=== PATIENT | female | born 1985 | race Two or more races ===

== ENCOUNTER 2020-06-27 21:26 | Emergency (ER) | payer SELFPAY ==
[~2020-06-27] VITALS: Ht 162.6 cm; Wt 59.0 kg
--- NOTE | 2020-06-27 21:39 | Emergency Room Report ---
History of Present Illness General Chief Complaint: Chest Pain Source: Patient (Anaya Carbajal DO) Present Illness HPI This patient is brought in by EMS from the street. The patient is a very poor historian. She appears homeless but she refuses to speak to me. She would only speak to me after I threatened to have her removed from the emergency department. She complained of some chest pain earlier in the day. EMS report that her blood sugar was also elevated. The patient does have diabetes. She states that she did take her morning dose of metformin but did not take her evening dose. She does not know the dose of metformin that she takes. Her partner is also in the emergency department with COVID-19. (Anaya Carbajal DO) Allergies: Coded Allergies: No Known Allergies (Unverified , 06/27/20) COVID-19 Screening Contact w/high risk pt: No Experienced COVID-19 symptoms?: No COVID-19 Testing performed UNDERWRITING ASSISTANT: No (Anaya Carbajal DO) Patient History Past Medical History: see triage record, DM, seizures Social History: Reports: smoking, alcohol use, drug use Last Menstrual Period: UNK Reviewed Nursing Documentation: PMH: Agreed; PSxH: Agreed (Anaya Carbajal DO) Nursing Documentation-PMH Hx Diabetes: Yes Hx Seizures: Yes (Anaya Carbajal DO) Review of Systems All Other Systems: negative except mentioned in HPI (Anaya Carbajal DO) Physical Exam Vital Signs Date Time Temp Pulse Resp B/P (MAP) Pulse Ox O2 Delivery O2 Flow Rate FiO2 06/27/20 21:25 97.0 120 20 106/70 (82) 99 Room Air Sp02 EP Interpretation: reviewed, normal General Appearance: no apparent distress, alert, GCS 15, non-toxic Head: normocephalic, atraumatic Eyes: bilateral eye normal inspection, bilateral eye PERRL ENT: hearing grossly normal, normal pharynx, no angioedema, normal voice Neck: full range of motion, supple/symm/no masses Respiratory: chest non-tender, lungs clear, normal breath sounds, no respiratory distress, no retraction, no accessory muscle use, speaking full sentences Cardiovascular #1: no edema, tachycardia Gastrointestinal: normal bowel sounds, non tender, soft, non-distended, no guarding, no rebound Rectal: deferred Musculoskeletal: back normal, normal range of motion, gait/station normal, non- tender Neurologic: alert, motor strength/tone normal, oriented x3, sensory intact, responsive, speech normal Psychiatric: judgement/insight normal, memory normal, mood/affect normal, no suicidal/homicidal ideation Skin: no rash, normal color (Amber Carbajala M. ) Medical Decision Making Diagnostic Impression: Primary Impression: Hyperglycemia Additional Impression: Dehydration Laboratory Tests Test 06/27/20 21:45 White Blood Count 4.4 K/UL (4.8-10.8) L Red Blood Count 5.60 M/UL (4.20-5.40) H Hemoglobin 14.3 G/DL (12.0-16.0) Hematocrit 43.3 % (37.0-47.0) Mean Corpuscular Volume 77 FL (80-99) L Mean Corpuscular Hemoglobin 25.5 PG (27.0-31.0) L Mean Corpuscular Hemoglobin Concent 33.0 G/DL (32.0-36.0) Red Cell Distribution Width 11.5 % (11.6-14.8) L Platelet Count 367 K/UL (150-450) Mean Platelet Volume 7.9 FL (6.5-10.1) Neutrophils (%) (Auto) 26.8 % (45.0-75.0) L Lymphocytes (%) (Auto) 54.5 % (20.0-45.0) H Monocytes (%) (Auto) 11.6 % (1.0-10.0) H Eosinophils (%) (Auto) 3.8 % (0.0-3.0) H Basophils (%) (Auto) 3.3 % (0.0-2.0) H Prothrombin Time 10.0 SEC (9.30-11.50) Prothrombin Time INR 0.9 (0.9-1.1) Activated Partial Thromboplast Time 26 SEC (23-33) D-Dimer 0.37 mg/L FEU (0.00-0.49) Sodium Level 134 MMOL/L (136-145) L Potassium Level 4.4 MMOL/L (3.5-5.1) Chloride Level 98 MMOL/L (98-107) Carbon Dioxide Level 25 MMOL/L (21-32) Anion Gap 11 mmol/L (5-15) Blood Urea Nitrogen 9 mg/dL (7-18) Creatinine 0.8 MG/DL (0.55-1.30) Estimated Glomerular Filtration Rate > 60 mL/min (>60) Glucose Level 420 MG/DL (74-106) H Lactic Acid Level 3.90 mmol/L (0.4-2.0) H Calcium Level 9.1 MG/DL (8.5-10.1) Magnesium Level 2.0 MG/DL (1.8-2.4) Ferritin 92 NG/ML (8-388) Total Bilirubin 0.4 MG/DL (0.2-1.0) Aspartate Amino Transferase (AST) 13 U/L (15-37) L Alanine Aminotransferase (ALT) 20 U/L (12-78) Alkaline Phosphatase 103 U/L (46-116) Lactate Dehydrogenase 137 U/L (81-234) Total Creatine Kinase 27 U/L (26-308) Creatine Kinase MB 0.5 NG/ML (0.0-3.6) Creatine Kinase MB Relative Index 1.8 Troponin I 0.000 ng/mL (0.000-0.056) C-Reactive Protein, Quantitative 0.8 mg/dL (0.00-0.90) Pro-B-Type Natriuretic Peptide 6 pg/mL (0-125) Total Protein 7.7 G/DL (6.4-8.2) Albumin 3.7 G/DL (3.4-5.0) Globulin 4.0 g/dL Albumin/Globulin Ratio 0.9 (1.0-2.7) L Lipase 260 U/L (73-393) Acetone Level Positive-small (NEGATIVE) (Anaya Carbajal. ) ER Course Laboratory Tests Test 06/27/20 21:45 06/27/20 23:01 06/28/20 00:00 06/28/20 00:45 White Blood Count 4.4 K/UL (4.8-10.8) L Red Blood Count 5.60 M/UL (4.20-5.40) H Hemoglobin 14.3 G/DL (12.0-16.0) Hematocrit 43.3 % (37.0-47.0) Mean Corpuscular Volume 77 FL (80-99) L Mean Corpuscular Hemoglobin 25.5 PG (27.0-31.0) L Mean Corpuscular Hemoglobin Concent 33.0 G/DL (32.0-36.0) Red Cell Distribution Width 11.5 % (11.6-14.8) L Platelet Count 367 K/UL (150-450) Mean Platelet Volume 7.9 FL (6.5-10.1) Neutrophils (%) (Auto) 26.8 % (45.0-75.0) L Lymphocytes (%) (Auto) 54.5 % (20.0-45.0) H Monocytes (%) (Auto) 11.6 % (1.0-10.0) H Eosinophils (%) (Auto) 3.8 % (0.0-3.0) H Basophils (%) (Auto) 3.3 % (0.0-2.0) H Prothrombin Time 10.0 SEC (9.30-11.50) Prothrombin Time INR 0.9 (0.9-1.1) Activated Partial Thromboplast Time 26 SEC (23-33) D-Dimer 0.37 mg/L FEU (0.00-0.49) Sodium Level 134 MMOL/L (136-145) L Potassium Level 4.4 MMOL/L (3.5-5.1) Chloride Level 98 MMOL/L (98-107) Carbon Dioxide Level 25 MMOL/L (21-32) Anion Gap 11 mmol/L (5-15) Blood Urea Nitrogen 9 mg/dL (7-18) Creatinine 0.8 MG/DL (0.55-1.30) Estimated Glomerular Filtration Rate > 60 mL/min (>60) Glucose Level 420 MG/DL (74-106) H Lactic Acid Level 3.90 mmol/L (0.4-2.0) H 2.70 mmol/L (0.4-2.0) H 2.10 mmol/L (0.66-2.22) Calcium Level 9.1 MG/DL (8.5-10.1) Magnesium Level 2.0 MG/DL (1.8-2.4) Ferritin 92 NG/ML (8-388) Total Bilirubin 0.4 MG/DL (0.2-1.0) Aspartate Amino Transferase (AST) 13 U/L (15-37) L Alanine Aminotransferase (ALT) 20 U/L (12-78) Alkaline Phosphatase 103 U/L (46-116) Lactate Dehydrogenase 137 U/L (81-234) Total Creatine Kinase 27 U/L (26-308) Creatine Kinase MB 0.5 NG/ML (0.0-3.6) Creatine Kinase MB Relative Index 1.8 Troponin I 0.000 ng/mL (0.000-0.056) C-Reactive Protein, Quantitative 0.8 mg/dL (0.00-0.90) Pro-B-Type Natriuretic Peptide 6 pg/mL (0-125) Total Protein 7.7 G/DL (6.4-8.2) Albumin 3.7 G/DL (3.4-5.0) Globulin 4.0 g/dL Albumin/Globulin Ratio 0.9 (1.0-2.7) L Lipase 260 U/L (73-393) Acetone Level Positive-small (NEGATIVE) Serum Alcohol < 3 mg/dL Patient was signed out to me by the previous physician. She remained hemodynamically stable and neurovascular intact and in no acute distress throughout the rest of her stay in the emergency department. Patient was given 3 L of IV normal saline. At the completion of the fluid resuscitation repeat lactate and blood glucose were much improved. Lactic acidosis had resolved and patient's repeat blood glucose was 104. Patient was told that she needs to be compliant with her medications and she expressed understanding. She will follow-up with her primary care provider. Discharged in stable condition. (Bhaskar Damico M.D.) EKG Diagnostic Results Rate: tachycardiac Rhythm: other - S.tachycardia ST Segments: no acute changes Other Impression Q-waves in V1, V2 ([facility]) Rhythm Strip Diag. Results EP Interpretation: yes Rate: 110's Rhythm: no PVC's, no ectopy, other - S.tachycardia ([facility]) Last Vital Signs Date Time Temp Pulse Resp B/P (MAP) Pulse Ox O2 Delivery O2 Flow Rate FiO2 06/27/20 21:25 97.0 120 20 106/70 (82) 99 Room Air ([facility]) [facility] Jun 27, 2020 21:39 Bhaskar Damico M.D. Jun 28, 2020 04:17
[2020-06-27 21:52] LABS: BASOPHILS % (AUTO) 3.3 % (0.0-2.0); EOSINOPHILS % (AUTO) 3.8 % (0.0-3.0); HEMATOCRIT 43.3 % (37.0-47.0); HEMOGLOBIN 14.3 G/DL (12.0-16.0); LYMPHOCYTES % (AUTO) 54.5 % (20.0-45.0); MEAN CORPUSCULAR VOLUME 77 FL (80-99); MONOCYTES % (AUTO) 11.6 % (1.0-10.0); NEUTROPHILS % (AUTO) 26.8 % (45.0-75.0); PLATELET COUNT 367 K/UL (150-450); RED CELL DISTRIBUTION WIDTH 11.5 % (11.6-14.8); WHITE BLOOD COUNT 4.4 K/UL (4.8-10.8)
[2020-06-27 22:00] VITALS: BP 112/70
[2020-06-27 22:06] LABS: ANION GAP 11 mmol/L (5-15); BLOOD UREA NITROGEN 9 mg/dL (7-18); CALCIUM 9.1 MG/DL (8.5-10.1); CARBON DIOXIDE 25 MMOL/L (21-32); CHLORIDE 98 MMOL/L (98-107); CREATININE 0.8 MG/DL (0.55-1.30); POTASSIUM 4.4 MMOL/L (3.5-5.1); SODIUM 134 MMOL/L (136-145)
[2020-06-27 22:09] LABS: INR 0.9 (0.9-1.1)
[2020-06-27 22:22] LABS: ALANINE AMINOTRANSFERASE 20 U/L (12-78); ALBUMIN 3.7 G/DL (3.4-5.0); ALBUMIN/GLOBULIN RATIO 0.9 (1.0-2.7); ALKALINE PHOSPHATASE 103 U/L (46-116); ASPARTATE AMINO TRANSFERASE 13 U/L (15-37); BILIRUBIN,TOTAL 0.4 MG/DL (0.2-1.0); CKMB 0.5 NG/ML (0.0-3.6); CREATINE KINASE 27 U/L (26-308); FERRITIN 92 NG/ML (8-388); LACTATE DEHYDROGENASE 137 U/L (81-234)
[2020-06-27] MEDS ORDERED: metFORMIN 500mg tab ORAL ONE (22:45)
--- NOTE | 2020-06-27 23:30 | Diagnostic Imaging Report ---
INDICATION: Chest pain. COMPARISON: Unavailable. FINDINGS: Single frontal view demonstrates a normal cardiomediastinal silhouette. No pleural effusions or clinically significant pneumothorax. Airspace opacity identified in the left lower lobe which may represent consolidation /pneumonia. The visualized osseous structures are within normal limits. IMPRESSION: Airspace opacity identified in the left lower lobe which may represent consolidation /pneumonia. Correlate.
[2020-06-28 00:30] VITALS: BP 121/73
[2020-06-28 01:30] VITALS: BP 115/73
== END 2020-06-28 01:30 | disposition home or self-care (01) ==
LOC: EDBD 21:26 → EMR 21:49
DX: E11.65 Type 2 diabetes mellitus with hyperglycemia (principal); G40.909 Epilepsy, unspecified, not intractable, without status epilepticus; E86.0 Dehydration; Z79.84 Long term (current) use of oral hypoglycemic drugs
CPT/HCPCS: 36415; 71045; 80053; 82009; 82550; 82553; 82728; 83605; 83615; 83690; 83735; 83880; 84484; 85025; 85379; 85610; 85730; 86140; 87040; 87181; 93005; 96360; 96361; 99284; G0480; J7030